=== PATIENT | male | born 1985 | race Two or more races ===

== ENCOUNTER 2017-12-26 14:45 | Emergency (ER) | payer OTHER ==
[~2017-12-26] VITALS: Ht 177.8 cm; Wt 83.9 kg
[2017-12-26] MEDS ORDERED: OLANZAPINE 5 MG TABLET ONE (15:04)
[2017-12-26] MEDS: OLANZAPINE 5 MG TABLET PO ONE (15:12)
[2017-12-26 15:13] VITALS: BP 112/80
--- NOTE | 2017-12-26 15:13 | NUR ---
Patient discharged to home in stable condition. Written and verbal after care instructions given. Patient verbalizes understanding of instruction.
== END 2017-12-26 15:14 | disposition home or self-care (01) ==
LOC: ER 14:49
DX: F41.9 Anxiety disorder, unspecified (principal)
CPT/HCPCS: A4606; Z7610